=== PATIENT | male | born 1985 | race Asian ===

== ENCOUNTER 2019-03-02 03:38 | Emergency (ER) | payer SELFPAY ==
[~2019-03-02] VITALS: Ht 177.8 cm; Wt 86.4 kg
[2019-03-02 04:05] VITALS: BP 124/68
== END 2019-03-02 05:02 | disposition left against medical advice (07) ==
LOC: EMS 03:41
DX: R11.10 Vomiting, unspecified (principal); Z53.21 Procedure and treatment not carried out due to patient leaving prior to being seen by health care provider